=== PATIENT | male | born 1965 | race Caucasian/White ===

== ENCOUNTER 2018-11-29 07:47 | Day surgery (SDC) | payer OTHER ==
[~2018-11-29] VITALS: Ht 188 cm; Wt 95.3 kg
[2018-11-29] MEDS ORDERED: POLYMYXIN 500,000/BACIT.10,000 UNITS in NS IRR 1 L IR ONE (11:04)
[2018-11-29] MEDS ORDERED: LR 1,000 ML IV SCH (12:28)
[2018-11-29] MEDS ORDERED: MORPHINE 4 MG/ML INJ. SYRINGE IVP PRN ×3 (12:30)
[2018-11-29] MEDS ORDERED: METOCLOPRAMIDE HCL 10 MG/2 ML VIAL IVP PRN (12:30)
[2018-11-29] MEDS ORDERED: PHENYLEPHRINE HCL 10 MG/ML VIAL (NEOSYNEPHRINE) ONE (12:45)
[2018-11-29] MEDS ORDERED: SEVOFLURANE 15 MIN GAS INH ONE (12:45)
[2018-11-29] MEDS ORDERED: ROCURONIUM BROMIDE 10 MG/ML (ZEMURON) ONE (12:45)
[2018-11-29] MEDS ORDERED: MIDAZOLAM HCL 5 MG/ML VIAL (VERSED) IV ONE (12:45)
[2018-11-29] MEDS ORDERED: PROPOFOL 200MG/ 20ML VIAL (DIPRIVAN) IV ONE (12:45)
[2018-11-29] MEDS ORDERED: ONDANSETRON HCL 4 MG/2 ML VIAL ONE (12:45)
[2018-11-29] MEDS ORDERED: NS IRRIG SOLN 1000 ML IR ONE (12:45)
[2018-11-29] MEDS ORDERED: LIDOCAINE/EPI 1% 1:100000 20 ML VIAL INJ ONE (12:45)
[2018-11-29] MEDS ORDERED: GLYCOPYRROLATE 0.2 MG/ML VIAL ONE (12:45)
[2018-11-29] MEDS ORDERED: fentaNYL CITRATE 250 MCG/5 ML AMP ONE (12:45)
[2018-11-29] MEDS ORDERED: CEFAZOLIN 1 GM IVPB PREMIX 50 ML IV ONE (12:45)
[2018-11-29] MEDS ORDERED: NEOSTIGMINE METHYLSULFATE 1 MG/ML, 10 ML VIAL ONE (12:45)
[2018-11-29] MEDS ORDERED: LR 1,000 ML IV.SOLN IV ONE (12:45)
[2018-11-29] MEDS ORDERED: MORPHINE 4 MG/ML INJ. SYRINGE ONE (13:20)
[2018-11-29] MEDS ORDERED: HYDROcodone/ACETAMIN 5-325 MG TAB (NORCO/ VICODIN) PO PRN (13:30)
[2018-11-29 14:06] VITALS: BP_SYST 135
[2018-11-29] MEDS ORDERED: HYDROcodone/ACETAMIN 5-325 MG TAB (NORCO/ VICODIN) ONE (15:06)
== END 2018-11-29 16:30 | disposition home or self-care (01) ==
LOC: SMU 07:47 → SDS 07:47
PROVIDERS: ATTEND Otolaryngology Plastic Surgery within the Head & Neck
DX: S02.2XXA Fracture of nasal bones, initial encounter for closed fracture (principal); J34.2 Deviated nasal septum; J33.8 Other polyp of sinus; J34.89 Other specified disorders of nose and nasal sinuses; Z86.73 Personal history of transient ischemic attack (TIA), and cerebral infarction without residual deficits; X58.XXXA Exposure to other specified factors, initial encounter; Y93.89 Activity, other specified; Y92.89 Other specified places as the place of occurrence of the external cause
CPT/HCPCS: 30140; 30520; A4649; J0690; J2250; J2270; J2370; J2405; J2704; J2710; J3010; J3490; J7120